=== PATIENT | male | born 1970 | race Caucasian/White ===

== ENCOUNTER 2017-10-25 22:05 | Emergency (ER) | payer OTHER ==
[~2017-10-25] VITALS: Ht 172.7 cm; Wt 99.8 kg
[~2017-10-25 22:05] MED LIST: AMOXICILLIN/POTASSIU PO; AZITHROMYCIN 2250 MG PO; BACTRIM 400-801 EACH; BACTRIM DS TAB1 EACH PO; CARISOPRODOL 3350 MG PO; CIPRO; CIPRO500 MG/5 M; CIPROFLOXACIN500 M1 PO; CLEOCIN HCL150 MG PO; DOXYCYCLINE 10100 MG PO; FLAGYL; FLAGYL500 MG; FLAGYL500 MG PO; IBUPROFEN 800800 M1 PO; LORTAB 5-500 T1 EAC1 PO; NOHOMEMEDICATIONS; NORCO; NORCO 5-325 TA1 EACH; NORCO 5-325 TA1 EACH PO; PERCOCET 5-3251 EACH PO; TORADOL 10 MG T10 MG PO; ULTRAM 50MG TAB50 MG PO; VICODIN; VICOPROFEN 2001 EACH
[2017-10-25] MEDS ORDERED: BUTALB-APAP-CA1 EACH PO (23:44)
[2017-10-25 23:55] VITALS: BP 143/92
== END 2017-10-25 23:55 | disposition home or self-care (01) ==
LOC: M.ERS 22:05
DX: S06.0X0A Concussion without loss of consciousness, initial encounter (principal); J45.909 Unspecified asthma, uncomplicated; G43.909 Migraine, unspecified, not intractable, without status migrainosus; F17.210 Nicotine dependence, cigarettes, uncomplicated; Z88.0 Allergy status to penicillin; Z88.5 Allergy status to narcotic agent; W22.8XXA Striking against or struck by other objects, initial encounter; Y93.89 Activity, other specified; Y92.89 Other specified places as the place of occurrence of the external cause; Y99.8 Other external cause status

== ENCOUNTER 2017-11-03 21:50 | Emergency (ER) | payer OTHER ==
[~2017-11-03] VITALS: Ht 170.2 cm; Wt 86.2 kg
[~2017-11-03 21:50] MED LIST changes: +BUTALB-APAP-CA1 EACH PO
[2017-11-03] MEDS ORDERED: LISINOPRIL20 MG PO (22:11)
[2017-11-03 23:21] LABS: INFLUENZA A ANTIGEN None Detected (None Detect); INFLUENZA B ANTIGEN None Detected (None Detect)
[2017-11-03] MEDS ORDERED: TORADOL 10 MG T10 MG PO (23:44)
[2017-11-03] MEDS ORDERED: ULTRAM 50MG TAB50 MG PO (23:44)
[2017-11-04 00:19] VITALS: BP 136/88
== END 2017-11-04 00:21 | disposition home or self-care (01) ==
LOC: M.ERS 21:50
PROVIDERS: Personal Emergency Response Attendant
DX: B34.9 Viral infection, unspecified (principal); R51 Headache; J45.909 Unspecified asthma, uncomplicated; F17.210 Nicotine dependence, cigarettes, uncomplicated; Z88.0 Allergy status to penicillin; Z88.5 Allergy status to narcotic agent

== ENCOUNTER 2017-11-09 18:37 | Emergency (ER) | payer OTHER ==
[~2017-11-09] VITALS: Ht 170.2 cm; Wt 86.2 kg
[~2017-11-09 18:37] MED LIST changes: +LISINOPRIL20 MG PO
[2017-11-09] MEDS ORDERED: BACTRIM DS TAB1 EAC1 PO (19:41)
[2017-11-09 19:46] VITALS: BP 120/87
== END 2017-11-09 18:54 | disposition home or self-care (01) ==
LOC: M.ERS 18:37
DX: S00.83XA Contusion of other part of head, initial encounter (principal); J32.9 Chronic sinusitis, unspecified; J45.909 Unspecified asthma, uncomplicated; G43.909 Migraine, unspecified, not intractable, without status migrainosus; I10 Essential (primary) hypertension; F17.210 Nicotine dependence, cigarettes, uncomplicated; Z86.14 Personal history of Methicillin resistant Staphylococcus aureus infection; Z86.73 Personal history of transient ischemic attack (TIA), and cerebral infarction without residual deficits; Z88.0 Allergy status to penicillin; Z88.5 Allergy status to narcotic agent; W01.0XXA Fall on same level from slipping, tripping and stumbling without subsequent striking against object, initial encounter; Y93.89 Activity, other specified; Y92.89 Other specified places as the place of occurrence of the external cause; Y99.8 Other external cause status

== ENCOUNTER 2017-11-16 13:52 | Emergency (ER) | payer OTHER ==
[~2017-11-16] VITALS: Ht 170.2 cm; Wt 86.2 kg
[~2017-11-16 13:52] MED LIST changes: +BACTRIM DS TAB1 EAC1 PO
[2017-11-16] MEDS ORDERED: BUTALB-APAP-CA1 EACH PO (15:23)
[2017-11-16] MEDS ORDERED: IBUPROFEN 800800 MG PO (15:23)
[2017-11-16 15:41] VITALS: BP 154/95
== END 2017-11-16 15:43 | disposition home or self-care (01) ==
LOC: M.ERS 13:52
DX: G43.909 Migraine, unspecified, not intractable, without status migrainosus (principal); I10 Essential (primary) hypertension; J45.909 Unspecified asthma, uncomplicated; F17.210 Nicotine dependence, cigarettes, uncomplicated; Z88.0 Allergy status to penicillin; Z88.5 Allergy status to narcotic agent; Z88.8 Allergy status to other drugs, medicaments and biological substances; Z86.14 Personal history of Methicillin resistant Staphylococcus aureus infection; Z86.73 Personal history of transient ischemic attack (TIA), and cerebral infarction without residual deficits

== ENCOUNTER 2017-11-26 20:33 | Emergency (ER) | payer OTHER ==
[~2017-11-26] VITALS: Ht 170.2 cm; Wt 86.2 kg
[~2017-11-26 20:33] MED LIST changes: +IBUPROFEN 800800 MG PO
[2017-11-26] MEDS ORDERED: LISINOPRIL20 MG (20:42)
[2017-11-26] MEDS ORDERED: NAPROSYN500 MG PO (21:35)
[2017-11-26 22:00] VITALS: BP 127/77
== END 2017-11-26 22:00 | disposition home or self-care (01) ==
LOC: M.ERS 20:33
DX: S83.8X1A Sprain of other specified parts of right knee, initial encounter (principal); J45.909 Unspecified asthma, uncomplicated; G43.909 Migraine, unspecified, not intractable, without status migrainosus; I10 Essential (primary) hypertension; F17.210 Nicotine dependence, cigarettes, uncomplicated; Z86.73 Personal history of transient ischemic attack (TIA), and cerebral infarction without residual deficits; Z86.14 Personal history of Methicillin resistant Staphylococcus aureus infection; Z88.0 Allergy status to penicillin; Z88.5 Allergy status to narcotic agent; X50.1XXA Overexertion from prolonged static or awkward postures, initial encounter; Y93.89 Activity, other specified; Y92.89 Other specified places as the place of occurrence of the external cause; Y99.8 Other external cause status

== ENCOUNTER 2017-12-17 19:10 | Emergency (ER) | payer OTHER ==
[~2017-12-17] VITALS: Ht 170.2 cm; Wt 83.9 kg
[~2017-12-17 19:10] MED LIST changes: +LISINOPRIL20 MG; +NAPROSYN500 MG PO
[2017-12-17] MEDS ORDERED: MEDROLDOSEPACK PO (19:37)
[2017-12-17] MEDS ORDERED: FLEXERIL PO (19:37)
[2017-12-17 20:10] VITALS: BP 152/82
== END 2017-12-17 20:10 | disposition home or self-care (01) ==
LOC: M.ERS 19:10
DX: M54.12 Radiculopathy, cervical region (principal); J45.909 Unspecified asthma, uncomplicated; G43.909 Migraine, unspecified, not intractable, without status migrainosus; I10 Essential (primary) hypertension; F17.210 Nicotine dependence, cigarettes, uncomplicated; Z88.0 Allergy status to penicillin; Z88.5 Allergy status to narcotic agent; Z88.8 Allergy status to other drugs, medicaments and biological substances; Z90.49 Acquired absence of other specified parts of digestive tract; Z86.73 Personal history of transient ischemic attack (TIA), and cerebral infarction without residual deficits; Z86.14 Personal history of Methicillin resistant Staphylococcus aureus infection

== ENCOUNTER 2017-12-29 17:23 | Emergency (ER) | payer OTHER ==
[~2017-12-29] VITALS: Ht 170.2 cm; Wt 83.9 kg
[~2017-12-29 17:23] MED LIST changes: +FLEXERIL PO; +MEDROLDOSEPACK PO
[2017-12-29] MEDS ORDERED: TRAMADOL 50 MG50 MG PO (17:32)
[2017-12-29] MEDS ORDERED: MUSCLE RELAXANT (17:32)
[2017-12-29] MEDS ORDERED: LISINOPRIL20 MG PO (17:32)
[2017-12-29 17:55] LABS: ABSOLUTE EOSINOPHILS 0.1 thou/uL (0.0-0.7); ABSOLUTE LYMPHOCYTES 1.9 thou/uL (0.8-5.3); ABSOLUTE MONOCYTES 0.5 thou/uL (0.0-1.2); ABSOLUTE NEUTROPHILS 2.8 thou/uL (1.6-8.1); BASOPHILS 0.6 %; EOSINOPHILS 1.7 %; HEMATOCRIT 41.3 % (42.0-52.0); LYMPHOCYTES 34.7 %; MCH 28.8 pg (26.0-34.0); MCV 84.7 fL (80.0-100.0); MONOCYTES 9.8 %; MPV 9.8 fl. (7.2-11.1); NUCLEATED RBCS 0 /100WBC; PLATELET COUNT* 125 thou/uL (150-400); POLYS 53.2 %; RBC 4.88 mil/uL (4.50-6.00); WBC 5.4 thou/uL (4.0-11.0)
[2017-12-29 18:00] LABS: ANION GAP 7 mmol/L (7-16); BUN 9 mg/dL (7-18); CALCIUM 8.2 mg/dL (8.5-10.1); CHLORIDE 104 mmol/L (98-107); CO2 26 mmol/L (21-32); CREATININE 0.8 mg/dL (0.6-1.3); GLUCOSE 113 mg/dL (70-99); POTASSIUM 3.6 mmol/L (3.5-5.1); SODIUM 137 mmol/L (136-145)
[2017-12-29 18:10] LABS: ALBUMIN 3.4 g/dL (3.4-5.0); ALKALINE PHOSPHATASE 108 U/L (46-116); LIPASE 92 U/L (73-393); SGOT 23 U/L (15-37); SGPT 40 U/L (30-65); TOTAL BILIRUBIN 0.3 mg/dL (<0.1-1.0); TROPONIN-I LEVEL <0.06 ng/mL (<0.06)
[2017-12-29 18:16] LABS: URINE BILIRUBIN NEGATIVE (Negative); URINE BLOOD NEGATIVE (Negative); URINE CLARITY CLEAR; URINE COLOR YELLOW; URINE GLUCOSE-RANDOM TRACE (Negative); URINE KETONES NEGATIVE (Negative); URINE LEUKOCYTES-REFLEX NEGATIVE (Negative); URINE NITRITE-REFLEX NEGATIVE (Negative); URINE PROTEIN NEGATIVE (Negative); URINE SPECIFIC GRAVITY >= 1.030 (1.005-1.030); URINE UROBILINOGEN >= 8.0 E.U./dl (0.2-1.0)
[2017-12-29 18:22] LABS: AMP/METHAMP Negative (Negative); BARBITURATES Negative (Negative); BENZODIAZEPINES Negative (Negative); COCAINE Negative (Negative); METHADONE Negative (Negative); OPIATES Negative (Negative); PCP Negative (Negative); THC Negative (Negative)
[2017-12-29] MEDS ORDERED: BENTYL 20 MG TA20 M1 PO (18:33)
[2017-12-29] MEDS ORDERED: ZOFRAN4 MG PO (18:33)
[2017-12-29] MEDS ORDERED: CARAFATE 1 GM TA1 GM PO (18:34)
[2017-12-29 18:42] VITALS: BP 155/86
--- NOTE | 2017-12-30 18:42 | EKG ---
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
== END 2017-12-29 18:44 | disposition home or self-care (01) ==
LOC: M.ERS 17:23
PROVIDERS: Nurse Practitioner Family
DX: K59.9 Functional intestinal disorder, unspecified (principal); J45.909 Unspecified asthma, uncomplicated; G43.909 Migraine, unspecified, not intractable, without status migrainosus; I10 Essential (primary) hypertension; F17.210 Nicotine dependence, cigarettes, uncomplicated; Z90.49 Acquired absence of other specified parts of digestive tract; Z86.73 Personal history of transient ischemic attack (TIA), and cerebral infarction without residual deficits; Z86.14 Personal history of Methicillin resistant Staphylococcus aureus infection; Z88.0 Allergy status to penicillin; Z88.5 Allergy status to narcotic agent

== ENCOUNTER 2018-01-14 11:17 | Emergency (ER) | payer OTHER ==
[~2018-01-14] VITALS: Ht 170.2 cm; Wt 86.2 kg
[~2018-01-14 11:17] MED LIST changes: +BENTYL 20 MG TA20 M1 PO; +CARAFATE 1 GM TA1 GM PO; +MUSCLE RELAXANT; +TRAMADOL 50 MG50 MG PO; +ZOFRAN4 MG PO
[2018-01-14] MEDS ORDERED: IBUPROFEN 800800 M1 PO (12:17)
[2018-01-14 12:26] VITALS: BP 120/84
== END 2018-01-14 12:26 | disposition home or self-care (01) ==
LOC: M.ERS 11:17
DX: M25.531 Pain in right wrist (principal); I10 Essential (primary) hypertension; G43.909 Migraine, unspecified, not intractable, without status migrainosus; J45.909 Unspecified asthma, uncomplicated; F17.210 Nicotine dependence, cigarettes, uncomplicated; Z88.0 Allergy status to penicillin; Z88.5 Allergy status to narcotic agent; Z88.8 Allergy status to other drugs, medicaments and biological substances; Z90.49 Acquired absence of other specified parts of digestive tract; Z86.73 Personal history of transient ischemic attack (TIA), and cerebral infarction without residual deficits; Z86.14 Personal history of Methicillin resistant Staphylococcus aureus infection

== ENCOUNTER 2018-01-28 19:40 | Emergency (ER) | payer OTHER ==
[~2018-01-28] VITALS: Ht 170.2 cm; Wt 86.2 kg
[2018-01-28] MEDS ORDERED: MEDROLDOSEPACK PO (20:28)
[2018-01-28] MEDS ORDERED: ZANAFLEX4 MG PO (20:28)
[2018-01-28] MEDS ORDERED: IBUPROFEN 800800 M1 PO (20:28)
[2018-01-28 20:41] VITALS: BP 131/73
== END 2018-01-28 20:42 | disposition home or self-care (01) ==
LOC: M.ERS 19:40
DX: G89.29 Other chronic pain (principal); M54.5 Low back pain; J45.909 Unspecified asthma, uncomplicated; G43.909 Migraine, unspecified, not intractable, without status migrainosus; I10 Essential (primary) hypertension; Z86.14 Personal history of Methicillin resistant Staphylococcus aureus infection; F17.210 Nicotine dependence, cigarettes, uncomplicated; Z88.0 Allergy status to penicillin; Z88.5 Allergy status to narcotic agent

== ENCOUNTER 2018-06-27 09:44 | Emergency (ER) | payer OTHER ==
[~2018-06-27] VITALS: Ht 170.2 cm; Wt 81.7 kg
[~2018-06-27 09:44] MED LIST changes: +ZANAFLEX4 MG PO
[2018-06-27 09:53] VITALS: BP 126/84
[2018-06-27] MEDS ORDERED: LISINOPRIL10 MG PO (09:55)
[2018-06-27] MEDS ORDERED: FLEXERIL PO (09:57)
[2018-06-27] MEDS ORDERED: NORCO 5-325 TA1 EACH PO (09:57)
== END 2018-06-27 10:02 | disposition home or self-care (01) ==
LOC: M.ERS 09:44
DX: S86.811A Strain of other muscle(s) and tendon(s) at lower leg level, right leg, initial encounter (principal); S39.012A Strain of muscle, fascia and tendon of lower back, initial encounter; J45.909 Unspecified asthma, uncomplicated; G43.909 Migraine, unspecified, not intractable, without status migrainosus; I10 Essential (primary) hypertension; F17.210 Nicotine dependence, cigarettes, uncomplicated; Z86.73 Personal history of transient ischemic attack (TIA), and cerebral infarction without residual deficits; Z90.49 Acquired absence of other specified parts of digestive tract; Z86.14 Personal history of Methicillin resistant Staphylococcus aureus infection; Z88.0 Allergy status to penicillin; Z88.5 Allergy status to narcotic agent; W10.8XXA Fall (on) (from) other stairs and steps, initial encounter; Y93.89 Activity, other specified; Y92.89 Other specified places as the place of occurrence of the external cause; Y99.8 Other external cause status

== ENCOUNTER 2019-07-15 14:06 | Emergency (ER) | payer OTHER ==
[~2019-07-15] VITALS: Ht 172.7 cm; Wt 81.7 kg
[~2019-07-15 14:06] MED LIST changes: +LISINOPRIL10 MG PO
[2019-07-15 14:50] LABS: INFLUENZA A ANTIGEN Negative (Negative); INFLUENZA B ANTIGEN Negative (Negative)
[2019-07-15] MEDS ORDERED: PHENERGAN 25 MG25 M1 PO (15:25)
[2019-07-15] MEDS ORDERED: ZPAK PO (15:25)
[2019-07-15] MEDS ORDERED: TESSALON PERLE100 M1 PO (15:25)
[2019-07-15 15:37] VITALS: BP 154/94
== END 2019-07-15 15:39 | disposition home or self-care (01) ==
LOC: M.ERS 14:06
PROVIDERS: Emergency Medicine Emergency Medical Services
DX: J02.9 Acute pharyngitis, unspecified (principal); J45.909 Unspecified asthma, uncomplicated; G43.909 Migraine, unspecified, not intractable, without status migrainosus; I10 Essential (primary) hypertension; Z88.0 Allergy status to penicillin; Z88.5 Allergy status to narcotic agent; Z91.013 Allergy to seafood; Z86.14 Personal history of Methicillin resistant Staphylococcus aureus infection; Z90.49 Acquired absence of other specified parts of digestive tract

== ENCOUNTER 2019-10-29 12:18 | Emergency (ER) | payer OTHER ==
[~2019-10-29] VITALS: Ht 172.7 cm; Wt 86.2 kg
[~2019-10-29 12:18] MED LIST changes: +PHENERGAN 25 MG25 M1 PO; +TESSALON PERLE100 M1 PO; +ZPAK PO
[2019-10-29 13:36] LABS: ABSOLUTE EOSINOPHILS 0.2 thou/uL (0.0-0.7); ABSOLUTE LYMPHOCYTES 1.8 thou/uL (0.8-5.3); ABSOLUTE MONOCYTES 0.4 thou/uL (0.0-1.2); ABSOLUTE NEUTROPHILS 3.6 thou/uL (1.6-8.1); BASOPHILS 0.7 %; EOSINOPHILS 2.8 %; HEMATOCRIT 43.6 % (42.0-52.0); MCH 28.9 pg (26.0-34.0); MCHC 34.4 g/dL (28.0-37.0); MCV 83.8 fL (80.0-100.0); MONOCYTES 7.3 %; MPV 9.7 fl. (7.2-11.1); NUCLEATED RBCS 0 /100WBC; PLATELET COUNT* 169 thou/uL (150-400); POLYS 59.2 %; RDW-CV 14.1 % (10.5-14.5); WBC 6.1 thou/uL (4.0-11.0)
[2019-10-29 13:40] LABS: CALCIUM 7.8 mg/dL (8.5-10.1); POTASSIUM 3.4 mmol/L (3.5-5.1)
[2019-10-29 13:44] LABS: ALBUMIN 3.5 g/dL (3.4-5.0); TOTAL BILIRUBIN 0.3 mg/dL (<0.1-1.0); TOTAL PROTEIN 6.9 g/dL (6.4-8.2)
[2019-10-29] MEDS ORDERED: NORCO 5-325 TA1 EAC1 PO (14:52)
[2019-10-29] MEDS ORDERED: ZOFRAN ODT4 MG DISSOLVE (14:52)
--- NOTE | 2019-10-29 15:00 | EKG ---
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
[2019-10-29 15:05] VITALS: BP 129/89
== END 2019-10-29 15:07 | disposition left against medical advice (07) ==
LOC: M.ERS 12:18
PROVIDERS: Emergency Medicine Emergency Medical Services
DX: K56.609 Unspecified intestinal obstruction, unspecified as to partial versus complete obstruction (principal); R11.2 Nausea with vomiting, unspecified; I10 Essential (primary) hypertension; J45.909 Unspecified asthma, uncomplicated; G43.909 Migraine, unspecified, not intractable, without status migrainosus; F17.210 Nicotine dependence, cigarettes, uncomplicated; Z90.49 Acquired absence of other specified parts of digestive tract; Z86.73 Personal history of transient ischemic attack (TIA), and cerebral infarction without residual deficits; Z86.14 Personal history of Methicillin resistant Staphylococcus aureus infection; Z91.048 Other nonmedicinal substance allergy status; Z91.013 Allergy to seafood; Z88.0 Allergy status to penicillin; Z88.6 Allergy status to analgesic agent

== ENCOUNTER 2020-10-16 02:38 | Emergency (ER) | payer OTHER ==
[~2020-10-16] VITALS: Ht 172.7 cm; Wt 87.2 kg
[~2020-10-16 02:38] MED LIST changes: +NORCO 5-325 TA1 EAC1 PO; +ZOFRAN ODT4 MG DISSOLVE
[2020-10-16 05:07] VITALS: BP 130/74
== END 2020-10-16 05:08 | disposition home or self-care (01) ==
LOC: M.ERS 02:38
DX: S93.492A Sprain of other ligament of left ankle, initial encounter (principal); S83.8X2A Sprain of other specified parts of left knee, initial encounter; I10 Essential (primary) hypertension; G43.909 Migraine, unspecified, not intractable, without status migrainosus; J45.909 Unspecified asthma, uncomplicated; F17.210 Nicotine dependence, cigarettes, uncomplicated; Z86.73 Personal history of transient ischemic attack (TIA), and cerebral infarction without residual deficits; Z86.14 Personal history of Methicillin resistant Staphylococcus aureus infection; Z90.49 Acquired absence of other specified parts of digestive tract; Z88.0 Allergy status to penicillin; Z88.5 Allergy status to narcotic agent; Z88.8 Allergy status to other drugs, medicaments and biological substances; Z91.013 Allergy to seafood; W22.8XXA Striking against or struck by other objects, initial encounter; Y93.89 Activity, other specified; Y92.89 Other specified places as the place of occurrence of the external cause; Y99.8 Other external cause status